=== PATIENT | female | born 1990 | race American Indian/Alaskan Native ===

== ENCOUNTER 2019-03-11 04:03 | Inpatient (IN) | payer BC, MEDICAID ==
[2019-03-11] MEDS ORDERED: ZOFRAN IV PRN ×3 (04:38→21:26)
[2019-03-11] MEDS ORDERED: SUBLIMAZE IV PRN (04:38)
[2019-03-11] MEDS ORDERED: STADOL IV PRN (04:38)
[2019-03-11] MEDS ORDERED: NARCAN 0.4 MG/1 ML IV PRN ×3 (04:38→21:26)
[2019-03-11] MEDS ORDERED: BRETHINE SUB-Q PRN (04:38)
[2019-03-11] MEDS ORDERED: BRETHINE IVP PRN (04:38)
[2019-03-11] MEDS ORDERED: XYLOCAINE 2% INFILTRATI ONE (04:38)
[2019-03-11] MEDS ORDERED: MINERAL OIL PO PRN (04:38)
[2019-03-11] MEDS ORDERED: AMPICILLIN/NS 2 GM/100 ML 2 GM/100 ML BAG IV ONE (04:38)
[2019-03-11] MEDS ORDERED: PITOCin/NS 20 UNIT/1000ML DRIP 20 UNITS/1,000 ML BAG IV SCH ×3 (05:00→21:26)
[2019-03-11 05:42] LABS: Hematocrit 39.4 % (30.3-42.9); Hemoglobin 13.4 gm/dl (10.1-14.3); Mean Corpuscular HGB Conc 34 % (30-34); Mean Corpuscular Volume 95 fl (79-97); Platelet Count 211 K/mm3 (140-440); Red Blood Count 4.17 M/mm3 (3.65-5.03); Red Cell Distribution Width 13.5 % (13.2-15.2)
[2019-03-11] MEDS: LACTATED RINGERS 1,000 ML IV SCH ×2 (07:53→14:59)
[2019-03-11] MEDS ORDERED: AMPICILLIN/NS 1 GM/50 ML 1 GM/50 ML BAG IV SCH ×3 (08:30→12:00)
[2019-03-11] MEDS ORDERED: CELESTONE SOLUSPAN IM ONE ×2 (08:30→09:00)
--- NOTE | 2019-03-11 08:57 | Ultrasound Report ---
OB ULTRASOUND History: for EFW, MCKENNA and presentation. Technique: Transabdominal ultrasound with Doppler interrogation. Gestation: Single Position: Cephalic Amniotic Fluid: Decreased MCKENNA = 5.2 cm Heart Rate: 160 BPM BPD: 8.7 cm = 35 w 2 d HC: 31.1 cm = 34 w 6 d AC: 28.3 cm = 32 w 2 d FL: 7.0 cm = 36 w 0 d HC/AC Ratio: 1.10 Cephalic Index: 88.6 Estimated Weight: 2313 grams Clinical age = 35 w 3 d EDC: 04/12/19 US Gest. Age = 34 w 4 d EDC: 04/18/19 IMPRESSION: Viable, single intrauterine as described.
[2019-03-11] MEDS ORDERED: PITOCin/NS 30 UNIT/500ML 30 UNITS/500 ML BAG IV SCH (09:00)
--- NOTE | 2019-03-11 09:55 | History and Physical Report ---
History of Present Illness Date of examination: 03/11/19 Date of admission: 03/11/19 04:54 Chief complaint: rupture of membranes History of present illness: Pt is a 28 year old -N[place]ian female ALBINA 04/12/19 at 35w3d presents with rupture of membranes at 0330 am. She reports irregular contractions and denies vaginal bleeding. She has had care at [facility] since 11 wks complicated by morbid obesity, gestational diabetes A1, genital herpes without lesion or prodrome, and large for gestational age (EFW 95%ile). She is GBS unknown. 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 Family/Genetic History: none Social history: - Obstetrical History Expected Date of Delivery: 04/12/19 Actual Gestation: 35 Week(s) 3 Day(s) : 6 Para: 2 Hx # Term Pregnancies: 2 Number of Pregnancies: 0 Spontaneous Abortions: 1 Induced : 2 Number of Living Children: 2 Medications and Allergies Allergies Allergy/AdvReac Type Severity Reaction Status Date / Time No Known Allergies Allergy Verified 10/28/18 08:20 Home Medications Medication Instructions Recorded Confirmed Last Taken Type Doxycycline [Vibramycin CAP] 100 mg PO BID #14 capsule 12/04/13 11/09/14 Unknown Rx Ibuprofen [Motrin] 800 mg PO TID PRN #30 tablet 12/04/13 11/09/14 Unknown Rx Acetaminophen/Codeine [Tylenol #3] 1 tab PO Q6H PRN #15 tab 07/14/14 11/09/14 Unknown Rx Ibuprofen [Motrin 600 MG tab] 600 mg PO Q6H #30 tablet 11/10/14 Unknown Rx Penicillin V Potassium 500 mg PO BID #20 tablet 09/27/18 Unknown Rx diphenhydrAMINE [Benadryl CAP] 25 mg PO Q6HR PRN #15 capsule 10/28/18 Unknown Rx Active Meds: Active Medications Butorphanol Tartrate (Stadol) 2 mg IV Q2H PRN PRN Reason: Pain , Severe (7-10) Ephedrine Sulfate (Ephedrine Sulfate) 10 mg IV Q2M PRN PRN Reason: Hypotension Fentanyl (Sublimaze) 100 mcg IV Q2H PRN PRN Reason: Labor Pain Lactated Ringer's (Lactated Ringers) 1,000 mls @ 125 mls/hr IV DIRECT BUBBA Last Admin: 03/11/19 07:53 Dose: 125 mls/hr Documented by: Oxytocin/Sodium Chloride (Pitocin/Ns 20 Unit/1000ml Drip) 20 units in 1,000 mls @ 125 mls/hr IV DIRECT BUBBA Oxytocin/Sodium Chloride (Pitocin/Ns 30 Unit/500ml) 30 units in 500 mls @ 2 mls/hr IV TITR BUBBA; Protocol Last Titration: 03/11/19 09:35 Dose: 10 ml/hr, 10 mls/hr Documented by: Ampicillin Sodium (Ampicillin/Ns 1 Gm/50 Ml) 1 gm in 50 mls @ 100 mls/hr IV Q4H BUBBA; Protocol Mineral Oil (Mineral Oil) 30 ml PO QHS PRN PRN Reason: Constipation Naloxone HCl (Narcan 0.4 Mg/1 Ml) 0.1 mg IV Q2MIN PRN PRN Reason: Res Rate </= 8 or 02 SAT < 92% Ondansetron HCl (Zofran) 4 mg IV Q8H PRN PRN Reason: Nausea And Vomiting Terbutaline Sulfate (Brethine) 0.25 mg SUB-Q ONCE PRN PRN Reason: Hyperstimulation/Hypertonicity Terbutaline Sulfate (Brethine) 0.25 mg IVP ONCE PRN PRN Reason: Hyperstimulation/Hypertonicity Review of Systems All systems: negative - Vital Signs Vital signs: Vital Signs Temp Pulse Resp BP 98.6 F 100 H 16 132/73 03/11/19 04:37 03/11/19 04:37 03/11/19 04:37 03/11/19 04:37 Temp Pulse Resp BP Pulse Ox 97.3 F L 85 20 129/67 03/11/19 08:00 03/11/19 09:41 03/11/19 08:00 03/11/19 09:41 - Physical Exam Breasts: Positive: deferred Cardiovascular: Regular rate Lungs: Positive: Clear to auscultation Abdomen: Positive: soft (obese, gravid ) Genitourinary (Female): Positive: normal external genitalia Uterus: Positive: enlarged (gravid ) Extremities: Positive: edema (trace) - Obstetrical FHR: category 1 Uterine Contraction Monitor Mode: External Cervical Dilatation: 3 Cervical Effacement Percentage: 60 station: -3 Uterine Contraction Pattern: Irregular Uterine Tone Measurement Phase: Resting Uterine Contraction Intensity: Mild Results Result Diagrams: 03/11/19 05:20 All other labs normal. Assessment and Plan A: IUP at 35w3d PPROM Morbid Obesity Genital Herpes without lesion or prodrome GBS unknown P: Admit to labor and delivery. GBS prophylaxis Pitocin induction NICU consult
--- NOTE | 2019-03-11 11:45 | Event Note ---
Date: 03/11/19 Pt somewhat uncomfortable with contractions. Category II tracing. Cervix 3.5/60/-3. Continue pitocin induction.
[2019-03-11] MEDS ORDERED: NARCAN 2 MG/2 ML IV PRN (15:19)
--- NOTE | 2019-03-11 15:26 | Anesthesia Consultation ---
Anesthesia Consult and Med Hx Date of service: 03/11/19 - Airway Anesthetic Teeth Evaluation: Good ROM Head & Neck: Adequate Mental/Hyoid Distance: Adequate Mallampati Class: Class II Intubation Access Assessment: Good - Pre-Operative Health Status ASA Pre-Surgery Classification: ASA3 Proposed Anesthetic Plan: Epidural, Spinal - Pulmonary Hx Asthma: No COPD: No Hx Pneumonia: No - Cardiovascular System Hx Hypertension: No - Central Nervous System Hx Seizures: No Hx Psychiatric Problems: No - Endocrine Hx Renal Disease: No Hx End Stage Renal Disease: No Hx Non-Insulin Dependent Diabetes: Yes (GDM) Hx Hypothyroidism: No Hx Hyperthyroidism: No - Hematic Hx Anemia: No Hx Sickle Cell Disease: No - Other Systems Hx Alcohol Use: No Hx Obesity: Yes (BMI-47)
[2019-03-11] MEDS ORDERED: fentaNYL-BUPIV 2 MCG/ML-0.125% 200 MCG/100 ML BAG EPIDURAL SCH (16:00)
[2019-03-11] MEDS ORDERED: NEO SYNEPHRINE ONE (16:34)
[2019-03-11] MEDS ORDERED: NACL 0.9% 1000 ML 1,000 ML VG SCH (17:00)
--- NOTE | 2019-03-11 17:03 | Event Note ---
Date: 03/11/19 Provider on-call called to bedside secondary to episode of altered mental status x 30 seconds after epidural. Pt noted to be markedly hypotensive. Category II tracing. Pt given ephedrine (documented by anesthesia). BP improved. Pitocin paused. Continue to monitor closely.
[2019-03-11] MEDS ORDERED: NACL 0.9% 500 ML 500 ML ONE (17:28)
[2019-03-11] MEDS ORDERED: REGLAN IV ONE (17:31)
[2019-03-11] MEDS ORDERED: BICITRA PO ONE (17:31)
[2019-03-11] MEDS ORDERED: PEPCID IV ONE (17:31)
[2019-03-11] MEDS ORDERED: ceFAZolin 3 GM in NACL 0.9% 100 ML IV NR (17:45)
--- NOTE | 2019-03-11 17:58 | Event Note ---
Date: 03/11/19 FHTs still with repetitive deep variable decelerations despite amnioinfusion. Plan to proceed with delivery.
[2019-03-11] MEDS ORDERED: LACTATED RINGERS 1,000 ML IV SCH (18:00)
[2019-03-11] MEDS ORDERED: ANCEF/STERILE WATER 2 GM/20 ML 2 GM/20 ML SYRINGE IV ONE (18:02)
[2019-03-11] MEDS ORDERED: XYLOCAINE MPF 2% ONE (18:05)
[2019-03-11] MEDS ORDERED: SUBLIMAZE ONE (18:06)
[2019-03-11] MEDS ORDERED: MARCAINE 0.5% INFILTRATI ONE (18:12)
[2019-03-11] MEDS ORDERED: NACL 0.9% IR ONE (18:31)
[2019-03-11] MEDS ORDERED: WATER FOR IRRIG STERILE IR ONE (18:31)
[2019-03-11] MEDS ORDERED: ANCEF ONE (19:15)
[2019-03-11] MEDS ORDERED: TORADOL ONE (19:15)
--- NOTE | 2019-03-11 19:18 | Procedure Note ---
OB Delivery Note - Delivery Date of Delivery: 03/11/19 Surgeon: YADY COATS Estimated blood loss: other (500 mL) - Section Preop diagnosis: nonreassuring FHR tracing Postop diagnosis: same section procedure: section, primary low transverse Disposition: PACU Complications: none Narrative: Please see operative report. - A at 1 minute: 8 at 5 minutes: 9 Gender: Male (2485g (5lb 8oz) @ 1844 pm)
--- NOTE | 2019-03-11 19:19 | Operative Report ---
Operative Report Operative Report: Date of procedure: March 11, 2019 Preoperative diagnosis: 1) IUP at 35w3d 2) PPROM 3) NRFHTs- repetitive variable decelerations 4) Morbid Obesity Postoperative diagnosis: Same Procedure: Primary low transverse section Surgeon: Maddy Goldstein M.D. Anesthesia: Epidural Findings: 1) Viable male , Apgars 8 and 9, weight 2485g, (5 lb 8 oz) in cephalic presentation. Nuchal cord x 1 2) Normal-appearing uterus ovaries and tubes Estimated blood loss: 500 mL IV fluids: 1700 mL Urine output: 300 mL Drains: Cruz to gravity Specimens: Placenta to pathology Complications: None. Counts correct x 3 Disposition: Stable to PACU Indication for procedure: Pt is a 28 year old at 35w3d who presents with PPROM and repetitive variable decelerations despite amnioinfusion remote from delivery. The decision was made to proceed with section. Operation in detail: After the risks, benefits, alternatives and complications were explained to the patient she gave informed consent for the procedure. She was subsequently taken to the operating room where epidural anesthesia was noted to be adequate. She was subsequently placed in the dorsal supine position with leftward tilt and prepped and draped in a normal sterile fashion. heart tones were noted to be in the 150s prior to incision. A timeout was performed. A Pfannenstiel skin incision was made with the knife and carried down to the layer of the fascia with the Bovie. The fascia was incised in the midline and the fascial incision was extended bilaterally with the Bovie. Attention was then turned to the superior aspect of the incision which was grasped with two Kochers, tented up, and dissected off the rectus muscles. Attention was then turned to the inferior aspect of the incision which was grasped with two Kochers, tented up and dissected off the rectus muscles. The rectus muscles were then in the midline. The peritoneum was then entered bluntly. The peritoneal incision was extended with good visualization of the bladder. The peritoneal incision was then stretched. An Mikhail self-retaining retractor was placed for visualization. The bladder blade was placed. The vesicouterine peritoneum was grasped with smooth pickups and incised with Metzenbaum scissors. Metzenbaum scissors were used to extend the incision bilaterally. The bladder flap was then created digitally and the bladder blade was replaced. A transverse incision was made in the lower uterine segment with a knife and extended bilaterally with the bandage scissors. The head was delivered without difficulty followed by shoulders and body. was bulb suctioned at delivery. The cord was clamped and cut and the was handed to NICU staff in attendance. Cord blood was collected. The placenta was then delivered manually. The uterus was then cleared of all clots and debris. The hysterotomy was then reapproximated with 0 Vicryl in a running locked fashion. A second layer of the same suture was used in imbricating fashion. The hysterotomy was inspected and hemostasis was noted. The Mikhail self-retaining retractor was removed. The gutters were irrigated and cleared of all clots and debris. The hysterotomy was again inspected and noted to be hemostatic. Surgicel was placed over the hy sterotomy. The peritoneum was reapproximated with 2-0 Vicryl in a running fashion incorporating the rectus muscles. The fascia was reapproximated with 0 Vicryl in a running fashion. The subcutaneous tissue was reapproximated with 3- 0 Vicryl in a running fashion. The skin was reapproximated with 4-0 Vicryl in a subcuticular fashion. The incision was then covered with steri strips and a pressure dressing. The procedure was then ended. The patient tolerated the procedure well and was taken to the PACU in stable condition. All instrument, lap, and needle counts were correct 3.
[2019-03-11] MEDS ORDERED: BENADRYL IV PRN (19:51)
[2019-03-11] MEDS ORDERED: PHENERGAN PR PRN (19:51)
[2019-03-11] MEDS ORDERED: PHENERGAN PO PRN (19:51)
--- NOTE | 2019-03-11 19:51 | Post Anesthesia Evaluation ---
- Post Anesthesia Evaluation Patient Participated: Yes Airway Patent: Yes Stable Respiratory Function: Yes Nausea/Vomiting: No Temp > 96.8F: Yes Pain Manageable: Yes Adequeate Hydration: Yes Anesthesia Complications: No Block Receding Appropriately: Yes Patient on Ventilator: Yes
[2019-03-11] MEDS ORDERED: SODIUM CHLORIDE FLUSH SYRINGE 10 ML IV SCH (20:00)
[2019-03-11] MEDS ORDERED: LANSINOH TP PRN (21:26)
[2019-03-11] MEDS ORDERED: D5LR 1,000 ML IV SCH (21:26)
[2019-03-11] MEDS ORDERED: TUCKS PAD TP PRN (21:26)
[2019-03-11] MEDS ORDERED: SODIUM CHLORIDE FLUSH SYRINGE 10 ML IV NR (21:26)
[2019-03-11] MEDS: DILAUDID IV PRN (22:15)
[2019-03-11] MEDS: ANCEF/NS 1 GM/50 ML 1 GM/50 ML BAG IV SCH (22:18)
[2019-03-12] MEDS: DILAUDID IV PRN (02:12)
[2019-03-12] MEDS: PERCOCET 5/325 PO PRN ×4 (06:17→20:08)
[2019-03-12] MEDS: IBUPROFEN PO PRN ×2 (06:18→18:27)
[2019-03-12] MEDS: ANCEF/NS 1 GM/50 ML 1 GM/50 ML BAG IV SCH (06:22)
[2019-03-12 07:44] LABS: Hematocrit 35.8 % (30.3-42.9); Hemoglobin 12.2 gm/dl (10.1-14.3)
[2019-03-12] MEDS: FEOSOL PO SCH (09:50)
[2019-03-12] MEDS ORDERED: DEEP SEA NS PRN (16:10)
[2019-03-12] MEDS: MYLICON PO PRN (18:33)
[2019-03-12] MEDS ORDERED: BOOSTRIX IM ONE (19:23)
[2019-03-12] MEDS ORDERED: M-M-R II VACCINE SUB-Q ONE (19:23)
[2019-03-12] MEDS: MILK OF MAGNESIA PO SCH (21:31)
[2019-03-13] MEDS: PERCOCET 5/325 PO PRN ×5 (00:01→22:26)
[2019-03-13] MEDS: IBUPROFEN PO PRN ×4 (00:02→22:26)
--- NOTE | 2019-03-13 00:17 | Progress Note ---
Assessment and Plan A: PPD#1 s/p primary at 35 wks secondary to PPROM and NRFHTs Morbid Obesity Nasal congestion P: Routine postop care Saline nasal spray Subjective - Subjective Date of service: 03/13/19 Principal diagnosis: s/p section Interval history: Late entry. Pt evaluated around 8 am on 03/12/18. Reports nasal congestion but otherwise no complaints. Patient reports: appetite normal, flatus, no voiding normally (subramanian in place), no bowel movement, no ambulating normally (SCDs in place ) [place]: in NICU Objective - Vital Signs Latest vital signs: Vital Signs Temp Pulse Resp BP BP Pulse Ox 03/12/19 18:26 97.5 F L 89 24 126/71 100 03/12/19 16:17 16 03/12/19 08:22 98.6 F 78 18 121/75 03/12/19 04:38 78 112/69 98 03/12/19 04:30 98.9 F 76 20 112/69 03/12/19 02:12 20 Intake and Output 03/12/19 03/12/19 03/13/19 14:59 22:59 06:59 Intake Total 1160 600 Output Total 1300 Balance 1160 -700 Intake: Oral 1160 600 Output: Urine 1300 Indwelling Catheter 1300 Other: Total, Intake Amount 680 600 Total, Output Amount 700 # Voids Indwelling Catheter 1 1 - Exam Breasts: Present: deferred Cardiovascular: Present: Regular rate Lungs: Present: Clear to auscultation Abdomen: Present: soft (obese ) Uterus: Present: fundal height below umbilicus Extremities: Present: normal Incision: Present: dressed
[2019-03-13] MEDS: MILK OF MAGNESIA PO SCH ×4 (02:06→20:44)
[2019-03-13] MEDS: FEOSOL PO SCH (09:28)
--- NOTE | 2019-03-13 12:32 | Progress Note ---
Assessment and Plan A/P POD 2 s/p primary csec doing well VSS consider d/c home tomorrow Subjective - Subjective Date of service: 03/13/19 Principal diagnosis: s/p section Patient reports: appetite normal, voiding normally, pain well controlled, flatus, ambulating normally : doing well Objective - Vital Signs Latest vital signs: Vital Signs Temp Pulse Resp BP BP Pulse Ox 03/13/19 08:17 97.6 F 86 16 115/81 99 03/12/19 18:26 97.5 F L 89 24 126/71 100 03/12/19 16:17 16 Intake and Output 03/12/19 03/13/19 03/13/19 23:59 07:59 15:59 Intake Total 840 Output Total 1300 Balance -460 Intake: Oral 840 Output: Urine 1300 Indwelling Catheter 1300 Other: Total, Intake Amount 240 Total, Output Amount 700 # Voids Indwelling Catheter 1 1 - Exam Breasts: Present: normal Cardiovascular: Present: Regular rate, Normal S1 Lungs: Present: Clear to auscultation, Normal air movement Abdomen: Present: normal appearance, soft, normal bowel sounds. Absent: distention, tenderness, guarding Vulva: both: normal Uterus: Present: normal, firm, fundal height below umbilicus. Absent: bogginess, tenderness Extremities: Present: normal Deep Tendon Reflex Grade: Normal +2 Incision: Present: normal, dry, intact
[2019-03-13] MEDS: MYLICON PO PRN (17:52)
[2019-03-14] MEDS: IBUPROFEN PO PRN ×2 (04:06→10:47)
[2019-03-14] MEDS: MILK OF MAGNESIA PO SCH ×2 (04:06→08:49)
[2019-03-14] MEDS: PERCOCET 5/325 PO PRN ×2 (04:06→10:45)
[2019-03-14] MEDS: MYLICON PO PRN (08:47)
[2019-03-14] MEDS: FEOSOL PO SCH (08:49)
[2019-03-14 08:57] VITALS: BP 137/76
--- NOTE | 2019-03-14 10:20 | Progress Note ---
Assessment and Plan - Patient Problems (1) delivery delivered Current Visit: Yes Status: Acute Plan to address problem: patient doing well routine postop care Subjective - Subjective Date of service: 03/14/19 Principal diagnosis: s/p section Interval history: Patient is tolerating regular diet. Pain is better controlled. Voiding without difficulty Patient reports: appetite normal, voiding normally, pain well controlled : doing well Objective - Vital Signs Latest vital signs: Vital Signs Temp Pulse Resp BP BP Pulse Ox 03/14/19 08:16 97.4 F L 82 18 137/76 98 03/14/19 00:12 98.7 F 70 18 107/55 99 03/13/19 15:52 97.4 F L 87 16 149/73 99 Intake and Output 03/13/19 03/14/19 03/14/19 22:59 06:59 14:59 Intake Total 200 Balance 200 Intake: Oral 200 Other: Total, Intake Amount 200 - Exam Abdomen: Present: soft Uterus: Present: normal
--- NOTE | 2019-03-14 10:22 | Discharge Summary ---
Providers - Providers Date of Admission: 03/11/19 04:54 Date of discharge: 03/14/19 Attending physician: ELISABETH TURNER MD Primary care physician: ELISABETH TURNER MD Hospitalization Reason for admission: rupture of membranes Delivery: Procedure: section, primary low transverse Discharge diagnosis: delivery baby: male Hospital course: Patient presented with PPROM. Intrapartum complicated by NRFHT. Primary performed Condition at discharge: Good Disposition: DC-01 TO HOME OR SELFCARE - Discharge Diagnoses (1) delivery delivered Status: Acute Plan - Discharge Medications Prescriptions: Ibuprofen [Motrin] 800 mg PO Q8HR PRN #30 tablet PRN Reason: Pain, Moderate (4-6) oxyCODONE /ACETAMINOPHEN [Percocet 5/325] 1 tab PO Q6HR PRN #40 tablet PRN Reason: Pain - Provider Discharge Summary Activity: no sex for 6 weeks, no heavy lifting 4 weeks, no strenuous exercise Diet: routine Instructions: routine Additional instructions: [] Smoking cessation referral if applicable(refer to patient education folder for contact #) [] Refer to [facility] Booklet Call your doctor immediately for: * Fever > 100.5 * Heavy vaginal bleeding ( >1 pad per hour) * Severe persistent headache * Shortness of breath * Reddened, hot, painful area to leg or breast * Drainage or odor from incision. * Keep incision clean and dry at all times and follow doctor's instructions regarding bathing/showering schedule for visit in 2 weeks - Follow up plan
== END 2019-03-14 18:43 | disposition home or self-care (01) | DRG 787 ==
LOC: TRG 04:03 → LD 04:20 → TRG 04:54 → LD 04:54 → OB 21:22
PROVIDERS: ADMIT Obstetrics & Gynecology; ATTEND Obstetrics & Gynecology
PROC: 10D00Z1 Extraction of Products of Conception, Low, Open Approach (ICD-10-PCS; principal; 2019-03-11)
PROC: 3E0234Z Introduction of Serum, Toxoid and Vaccine into Muscle, Percutaneous Approach (ICD-10-PCS; 2019-03-12)
DX: O76 Abnormality in fetal heart rate and rhythm complicating labor and delivery (principal); O98.52 Other viral diseases complicating childbirth; O42.913 Preterm premature rupture of membranes, unspecified as to length of time between rupture and onset of labor, third trimester; E66.01 Morbid (severe) obesity due to excess calories; Z71.3 Dietary counseling and surveillance; Z3A.35 35 weeks gestation of pregnancy; Z37.0 Single live birth; Z23 Encounter for immunization; O99.214 Obesity complicating childbirth; O26.53 Maternal hypotension syndrome, third trimester; B00.9 Herpesviral infection, unspecified
CPT/HCPCS: 36415; 76816; 82962; 85014; 85018; 85027; 86592; 86850; 86900; 86901; 88307; G0378; J0290; J0690; J0702; J1170; J1885; J2370; J2590; J2765; J3010; J7040; J7120; J7121

== ENCOUNTER 2019-03-25 16:53 | Observation (INO) | payer BC, MEDICAID ==
[2019-03-25] MEDS ORDERED: MAGNESIUM SULFATE 4GM/100ML 4 GM/100 ML BAG IV ONE ×2 (17:13→21:00)
[2019-03-25] MEDS ORDERED: APRESOLINE IV PRN (17:13)
[2019-03-25 19:33] LABS: Hematocrit 42.6 % (30.3-42.9); Mean Corpuscular HGB Conc 33 % (30-34); Mean Corpuscular Volume 97 fl (79-97); Platelet Count 283 K/mm3 (140-440); Red Blood Count 4.41 M/mm3 (3.65-5.03); Red Cell Distribution Width 13.3 % (13.2-15.2)
[2019-03-25 20:03] LABS: Alanine Aminotransferase 10 units/L (7-56); Uric Acid 6.6 mg/dL (3.5-7.6)
[2019-03-25] MEDS: LACTATED RINGERS 1,000 ML IV SCH (20:23)
[2019-03-25] MEDS: MAGNESIUM SULFATE 40GM/1000ML 40 GM/1,000 ML BAG IV SCH (21:04)
[2019-03-25] MEDS ORDERED: TYLENOL PO PRN (21:57)
[2019-03-25] MEDS ORDERED: IBUPROFEN PO PRN (21:57)
[2019-03-25 23:14] LABS: Bilirubin,Urine NEG (Negative); Blood,Urine NEG (Negative); Color,Urine Straw (Yellow); Mucus,Urine FEW /HPF; Protein,Urine <15 mg/dL mg/dL (Negative); Urobilinogen,Urine < 2.0 mg/dL (<2.0); WBC,Urine < 1.0 /HPF (0.0-6.0)
--- NOTE | 2019-03-26 08:34 | History and Physical Report ---
History of Present Illness Date of examination: 03/26/19 Date of admission: 03/25/19 17:28 Chief complaint: Sent from the office with elevated blood pressure and headache History of present illness: Patient is a 28-year-old -Macanese female 6 para 2133 status post primary section on 03/11/2019 who presented to the office on 03/25/2019 with blood pressures 130s to 150s over 90s to 100s and complaint of headache for 5 days. The patient was subsequently admitted for preeclampsia for IV magnesium sulfate administration. 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 Family/Genetic History: none Social history: - Obstetrical History : 6 Para: 3 Hx # Term Pregnancies: 2 Number of Pregnancies: 1 Spontaneous Abortions: 1 Induced : 2 Number of Living Children: 3 Medications and Allergies Allergies Allergy/AdvReac Type Severity Reaction Status Date / Time No Known Allergies Allergy Verified 10/28/18 08:20 Home Medications Medication Instructions Recorded Confirmed Last Taken Type Doxycycline [Vibramycin CAP] 100 mg PO BID #14 capsule 12/04/13 11/09/14 Unknown Rx Ibuprofen [Motrin] 800 mg PO TID PRN #30 tablet 12/04/13 11/09/14 Unknown Rx Acetaminophen/Codeine [Tylenol #3] 1 tab PO Q6H PRN #15 tab 07/14/14 11/09/14 Unknown Rx Ibuprofen [Motrin 600 MG tab] 600 mg PO Q6H #30 tablet 11/10/14 Unknown Rx Penicillin V Potassium 500 mg PO BID #20 tablet 09/27/18 Unknown Rx diphenhydrAMINE [Benadryl CAP] 25 mg PO Q6HR PRN #15 capsule 10/28/18 Unknown Rx Ibuprofen [Motrin] 800 mg PO Q8HR PRN #30 tablet 03/12/19 Unknown Rx oxyCODONE /ACETAMINOPHEN [Percocet 1 tab PO Q6HR PRN #40 tablet 03/12/19 Unknown Rx 5/325] Active Meds: Active Medications Acetaminophen (Tylenol) 650 mg PO Q4H PRN PRN Reason: Pain, Mild (1-3) Hydralazine HCl (Apresoline) 5 mg IV Q30MIN PRN PRN Reason: HTN SYSBP>170/&OR ANGELO>110 Lactated Ringer's (Lactated Ringers) 1,000 mls @ 125 mls/hr IV DIRECT BUBBA Last Admin: 03/25/19 20:23 Dose: 125 mls/hr Documented by: Magnesium Sulfate (Magnesium Sulfate 40gm/1000ml) 40 gm in 1,000 mls @ 50 mls/hr IV DIRECT BUBBA Last Admin: 03/25/19 21:04 Dose: 2 gm/hr, 50 mls/hr Documented by: Ibuprofen (Motrin) 800 mg PO Q8H PRN PRN Reason: Pain, Mild (1-3) Last Admin: 03/25/19 22:26 Dose: 800 mg Documented by: Review of Systems All systems: negative - Vital Signs Vital signs: Vital Signs Temp Resp 98.3 F 18 03/25/19 18:24 03/25/19 18:24 Temp Pulse Resp BP Pulse Ox 98.9 F 89 16 128/83 99 03/26/19 08:10 03/26/19 08:30 03/26/19 08:10 03/26/19 08:03 03/26/19 08:30 - Physical Exam Breasts: Positive: deferred Cardiovascular: Regular rate Lungs: Positive: Clear to auscultation Abdomen: Positive: soft (obese ), other (incision healing well ) Extremities: Positive: edema (trace) Results Result Diagrams: 03/25/19 19:02 03/25/19 19:02 Abnormal lab results 03/25/19 03/26/19 Range/Units 19:02 01:36 Magnesium 4.60 H (1.7-2.3) mg/dL Lactate Dehydrogenase 308 H (91-180) units/L All other labs normal. Assessment and Plan A: preevclampsia on IV magnesium sulfate s/p primary section on 03/11/19 Morbid obesity P: Continue IV Magensium for 24 hrs then monitor BP curve Consider discharge this evening vs tomorrow
[2019-03-26] MEDS: FIORICET PO PRN ×2 (09:59→17:44)
[2019-03-26] MEDS ORDERED: CLARITIN PO SCH (10:00)
[2019-03-26] MEDS ORDERED: DEEP SEA NS SCH (10:00)
[2019-03-26] MEDS: LACTATED RINGERS 1,000 ML IV SCH (10:03)
[2019-03-26] MEDS: MAGNESIUM SULFATE 40GM/1000ML 40 GM/1,000 ML BAG IV SCH (17:27)
[2019-03-26 21:03] VITALS: BP 145/87
--- NOTE | 2019-03-26 21:10 | Event Note ---
Date: 03/26/19 Contacted by pt's nurse secondary to patient wanting to be discharged tonight. BPs remain below severe range and headache has resolved. Plan to discharge home with follow up next week in the office.
--- NOTE | 2019-03-26 21:15 | Discharge Summary ---
Providers - Providers Date of Admission: 03/25/19 17:28 Date of discharge: 03/26/19 Attending physician: YADY COATS Primary care physician: ELISABETH TURNER MD Hospitalization Reason for admission: other ( preeclampsia ) Discharge diagnosis: other ( Preeclampsia ) Hospital course: Pt was admitted to the hospital with preeclampsia. She received IV Magnesium sulfate for 24 hrs as well as serial blood pressure measurements. Her blood pressures did not exceed the severe range threshold without antihypertensives. She requested discharge shortly after discontinuation of the magnesium. She will follow up next week for a blood pressure check. Condition at discharge: Stable Disposition: DC-01 TO HOME OR SELFCARE Plan - Discharge Medications Prescriptions: Loratadine [Claritin] 10 mg PO DAILY #30 tablet Butalb/Acetaminophen/Caffeine [Fioricet 50-300-40 mg CAP] 1 cap PO Q6HR PRN #30 cap PRN Reason: Headache Azithromycin [Zithromax TAB] 500 mg PO QDAY #5 tablet - Provider Discharge Summary Activity: routine Diet: routine Instructions: routine Additional instructions: [] Smoking cessation referral if applicable(refer to patient education folder for contact #) [] Refer to [facility] Booklet Call your doctor immediately for: * Fever > 100.5 * Heavy vaginal bleeding ( >1 pad per hour) * Severe persistent headache * Shortness of breath * Reddened, hot, painful area to leg or breast * Drainage or odor from incision. * Keep incision clean and dry at all times and follow doctor's instructions regarding bathing/showering - Follow up plan Follow up: YADY COATS MD [Staff Physician] - 7 Days Forms: [facility] Discharge Summary
== END 2019-03-26 21:25 | disposition home or self-care (01) ==
LOC: 3A 16:53 → UNDOADMIN 16:53 → LD 17:28
PROVIDERS: ADMIT Obstetrics & Gynecology; ATTEND Obstetrics & Gynecology
DX: O14.95 Unspecified pre-eclampsia, complicating the puerperium (principal); O99.215 Obesity complicating the puerperium; E66.01 Morbid (severe) obesity due to excess calories
CPT/HCPCS: 36415; 81001; 82565; 83615; 83735; 84450; 84460; 84550; 85027; 96365; 96366; G0378; G0379; J3475; J7120

== ENCOUNTER 2020-03-09 15:47 | Outpatient (CLI) | payer BC, MEDICAID ==
[2020-03-09 16:36] LABS: Basophils % (Auto) 0.3 % (0.0-1.8); Eosinophils # (Auto) 0.1 K/mm3 (0.0-0.4); Eosinophils % (Auto) 1.2 % (0.0-4.3); Hematocrit 44.2 % (30.3-42.9); Hemoglobin 15.6 gm/dl (10.1-14.3); Lymphocytes # (Auto) 2.8 K/mm3 (1.2-5.4); Lymphocytes % (Auto) 32.3 % (13.4-35.0); Mean Corpuscular HGB Conc 35 % (30-34); Mean Corpuscular Volume 96 fl (79-97); Monocytes # (Auto) 0.9 K/mm3 (0.0-0.8); Monocytes % (Auto) 10.4 % (0.0-7.3); Platelet Count 330 K/mm3 (140-440); Red Blood Count 4.59 M/mm3 (3.65-5.03); Red Cell Distribution Width 12.8 % (13.2-15.2)
--- NOTE | 2020-03-09 18:06 | Ultrasound Report ---
US pelvic complete, US transvaginal INDICATION / CLINICAL INFORMATION: IRREGULAR MENSES. COMPARISON: None available. FINDINGS: Transabdominal and transvaginal imaging was performed. Uterus measures 6.7 x 4.7 x 5.8 cm. Endometrial echo complex measures 6 mm. Myometrium is heterogeneo us without focal lesion. Ovaries are symmetric and normal in size. Flow is seen to both ovaries. There is a 1.5 cm hypoechoic right ovarian lesion. No flow is seen within this. No free fluid or adnexal lesions. IMPRESSION: 1. 1.5 cm hypoechoic right ovarian lesion is avascular, this could be a hemorrhagic cyst but is nonsp ecific. 2. Myometrium is mildly heterogeneous without focal lesion. Endometrial echo complex is within normal limits. No endometrial fluid is seen. Signer Name: Anurag Mims MD Signed: 03/09/2020 6:02 PM Workstation Name: [id number]
== END 2020-03-09 15:48 | disposition home or self-care (01) ==
LOC: LAB 15:47
PROVIDERS: ATTEND Obstetrics & Gynecology
DX: N83.9 Noninflammatory disorder of ovary, fallopian tube and broad ligament, unspecified (principal); N92.6 Irregular menstruation, unspecified
CPT/HCPCS: 36415; 76830; 76856; 83001; 83036; 84146; 84443; 84702; 85025

== ENCOUNTER 2020-04-16 17:53 | Emergency (ER) | payer BC, MEDICAID ==
[2020-04-16 18:02] VITALS: BP 145/86
--- NOTE | 2020-04-16 19:08 | Emergency Department Report ---
ED General Adult HPI - General Chief complaint: Dyspnea/Respdistress Stated complaint: SOB/COUGH Time Seen by Provider: 04/16/20 18:19 Source: patient Mode of arrival: Ambulatory Limitations: No Limitations - History of Present Illness Initial comments: 29-year-old -[place] female resents emergency department complaining of a few week history of nasal congestion associated with cough that has not yet begun to respond to the singular provided by her primary care provider couple days ago. States that she has been having some issues with dyspnea and tightness in her chest and symptoms appear to worsen with ambulation and has been worsening over the last couple days. Wearing a facemask seems to make her symptoms worse but she denies any smoking history or history of asthma. No history of pulmonary embolisms and reports no fever, chills, sweats no hemoptysis no hematemesis no hematochezia no palpitations. -: Gradual, days(s) (5) Radiation: non-radiation Consistency: constant Improves with: none Worsens with: none Associated Symptoms: denies other symptoms Treatments Prior to Arrival: none - Related Data Previous Rx's Medication Instructions Recorded Last Taken Type DOXYCYCLINE Hyclate [Vibramycin 100 mg PO BID #14 capsule 12/04/13 Unknown Rx CAP] Ibuprofen [Motrin] 800 mg PO TID PRN #30 tablet 12/04/13 Unknown Rx Acetaminophen/Codeine [Tylenol #3] 1 tab PO Q6H PRN #15 tab 07/14/14 Unknown Rx Ibuprofen [Motrin 600 MG tab] 600 mg PO Q6H #30 tablet 11/10/14 Unknown Rx Penicillin V Potassium 500 mg PO BID #20 tablet 09/27/18 Unknown Rx diphenhydrAMINE [Benadryl CAP] 25 mg PO Q6HR PRN #15 capsule 10/28/18 Unknown Rx Ibuprofen [Motrin] 800 mg PO Q8HR PRN #30 tablet 03/12/19 Unknown Rx oxyCODONE /ACETAMINOPHEN [Percocet 1 tab PO Q6HR PRN #40 tablet 03/12/19 Unknown Rx 5/325] Azithromycin [Zithromax TAB] 500 mg PO QDAY #5 tablet 03/26/19 Unknown Rx Butalb/Acetaminophen/Caffeine 1 cap PO Q6HR PRN #30 cap 03/26/19 Unknown Rx [Fioricet 50-300-40 mg CAP] Loratadine (Nf) [Claritin] 10 mg PO DAILY #30 tablet 03/26/19 Unknown Rx Desloratadine [Clarinex] 5 mg PO DAILY #7 tablet 04/16/20 Unknown Rx Olopatadine HCl [Patanase] 30.5 gm NS DAILY #1 spray.pump 04/16/20 Unknown Rx predniSONE [Deltasone] 50 mg PO QDAY #5 tab 04/16/20 Unknown Rx Allergies Allergy/AdvReac Type Severity Reaction Status Date / Time No Known Allergies Allergy Verified 10/28/18 08:20 ED Review of Systems ROS: Stated complaint: SOB/COUGH Other details as noted in HPI Comment: All other systems reviewed and negative ED Past Medical Hx - Past Medical History Previous Medical History?: Yes Hx Hypertension: Yes Hx Congestive Heart Failure: No Hx Diabetes: No Hx Deep Vein Thrombosis: No Hx Renal Disease: No Hx Sickle Cell Disease: No Hx Seizures: No Hx Asthma: No Hx COPD: No Hx HIV: No Additional medical history: right leg injuy, hardwarde place, left leg with same c/o - Surgical History Additional Surgical History: surgery to right hip and foot, X1 2019 - Social History Smoking Status: Unknown if ever smoked Substance Use Type: Alcohol - Medications Home Medications: Home Medications Medication Instructions Recorded Confirmed Last Taken Type DOXYCYCLINE Hyclate [Vibramycin 100 mg PO BID #14 capsule 12/04/13 11/09/14 Unknown Rx CAP] Ibuprofen [Motrin] 800 mg PO TID PRN #30 tablet 12/04/13 11/09/14 Unknown Rx Acetaminophen/Codeine [Tylenol #3] 1 tab PO Q6H PRN #15 tab 07/14/14 11/09/14 Unknown Rx Ibuprofen [Motrin 600 MG tab] 600 mg PO Q6H #30 tablet 11/10/14 Unknown Rx Penicillin V Potassium 500 mg PO BID #20 tablet 09/27/18 Unknown Rx diphenhydrAMINE [Benadryl CAP] 25 mg PO Q6HR PRN #15 capsule 10/28/18 Unknown Rx Ibuprofen [Motrin] 800 mg PO Q8HR PRN #30 tablet 03/12/19 Unknown Rx oxyCODONE /ACETAMINOPHEN [Percocet 1 tab PO Q6HR PRN #40 tablet 03/12/19 Unknown Rx 5/325] Azithromycin [Zithromax TAB] 500 mg PO QDAY #5 tablet 03/26/19 Unknown Rx Butalb/Acetaminophen/Caffeine 1 cap PO Q6HR PRN #30 cap 03/26/19 Unknown Rx [Fioricet 50-300-40 mg CAP] Loratadine (Nf) [Claritin] 10 mg PO DAILY #30 tablet 03/26/19 Unknown Rx Desloratadine [Clarinex] 5 mg PO DAILY #7 tablet 04/16/20 Unknown Rx Olopatadine HCl [Patanase] 30.5 gm NS DAILY #1 spray.pump 04/16/20 Unknown Rx predniSONE [Deltasone] 50 mg PO QDAY #5 tab 04/16/20 Unknown Rx ED Physical Exam - General Limitations: No Limitations General appearance: alert, in no apparent distress - Head Head exam: Present: atraumatic, normocephalic - Eye Eye exam: Present: normal appearance, PERRL, EOMI Pupils: Present: normal accommodation - ENT ENT exam: Present: normal exam, normal orophraynx, mucous membranes moist, TM's normal bilaterally, other (Nasal congestion) - Neck Neck exam: Present: normal inspection, full ROM - Respiratory Respiratory exam: Present: normal lung sounds bilaterally. Absent: respiratory distress, wheezes, rales, chest wall tenderness, accessory muscle use - Cardiovascular Cardiovascular Exam: Present: normal rhythm, tachycardia. Absent: systolic murmur, diastolic murmur, rubs, gallop - GI/Abdominal GI/Abdominal exam: Present: soft, normal bowel sounds. Absent: distended, tenderness, guarding, hyperactive bowel sounds, hypoactive bowel sounds, organomegaly, mass - Extremities Exam Extremities exam: Present: normal inspection, normal capillary refill - Back Exam Back exam: Present: normal inspection. Absent: CVA tenderness (R), CVA tender ness (L) - Neurological Exam Neurological exam: Present: alert, oriented X3, CN II-XII intact, normal gait - Psychiatric Psychiatric exam: Present: normal affect, normal mood - Skin Skin exam: Present: warm, dry, intact, normal color. Absent: rash ED Course Vital Signs 04/16/20 04/16/20 17:55 18:24 Temperature 98 F Pulse Rate 89 Respiratory 22 Rate Blood Pressure 145/86 O2 Sat by Pulse 98 98 Oximetry ED Medical Decision Making - Medical Decision Making This patient presents with acute cough, most consistent with bronchitis. Differential diagnosis includes pneumonia, asthma, hyperreactive airways. Presentation not consistent with acute bacterial pneumonia, influenza, asthma, transient airway hyperresponsiveness. Presentation not consistent with chronic causes of cough (including GERD, asthma, postnasal discharge, medication side effect, CHF, lung cancer or mass). Plan: No chest x-ray CXR, supportive care, reassess Discussed with Ms. Teresa the myriad of issues occurred be associated with her with her symptoms she assured me she she was only suspicious of the seasonal allergies and wanted treatment for such treatment was rendered advised her to to follow-up in 24 to 48 hours and return to the ER should her condition continues or worsens. We discussed the possibility of pneumonia versus DVT versus pulmonary effusion among other things she was alert and oriented x3 of sound mind and and judgment and opted to forego further testing Critical care attestation.: If time is entered above; I have spent that time in minutes in the direct care of this critically ill patient, excluding procedure time. ED Disposition Clinical Impression: Dyspnea, Acute bronchitis Disposition: DC-01 TO HOME OR SELFCARE Is pt being admited?: No Does the pt Need Aspirin: No Condition: Stable Instructions: Acute Bronchitis (ED), Dyspnea (ED) Prescriptions: Desloratadine [Clarinex] 5 mg PO DAILY #7 tablet predniSONE [Deltasone] 50 mg PO QDAY #5 tab Olopatadine HCl [Patanase] 30.5 gm NS DAILY #1 spray.pump Referrals: TELMA WALTERS MD [Primary Care Provider] - 3-5 Days
== END 2020-04-16 19:07 | disposition home or self-care (01) ==
LOC: ED 17:53
DX: J20.8 Acute bronchitis due to other specified organisms (principal); I10 Essential (primary) hypertension; Z98.890 Other specified postprocedural states; Z79.899 Other long term (current) drug therapy
CPT/HCPCS: 99282

== ENCOUNTER 2020-05-28 08:27 | Emergency (ER) | payer BC, MEDICAID ==
[2020-05-28 09:09] LABS: Basophils % (Auto) 0.4 % (0.0-1.8); Eosinophils # (Auto) 0.1 K/mm3 (0.0-0.4); Hematocrit 41.4 % (30.3-42.9); Hemoglobin 14.5 gm/dl (10.1-14.3); Lymphocytes # (Auto) 2.5 K/mm3 (1.2-5.4); Lymphocytes % (Auto) 33.8 % (13.4-35.0); Mean Corpuscular HGB Conc 35 % (30-34); Mean Corpuscular Volume 97 fl (79-97); Monocytes # (Auto) 0.6 K/mm3 (0.0-0.8); Platelet Count 268 K/mm3 (140-440); Red Blood Count 4.28 M/mm3 (3.65-5.03); Red Cell Distribution Width 13.4 % (13.2-15.2)
[2020-05-28 09:20] LABS: INR 0.97 (0.87-1.13)
[2020-05-28 09:21] LABS: Partial Thromboplastin Time 23.6 Sec. (24.2-36.6)
[2020-05-28 09:26] LABS: Creatine Kinase MB < 1.0 ng/mL (0.0-4.0)
[2020-05-28 09:30] LABS: BUN/Creatinine Ratio 13; Blood Urea Nitrogen 10 mg/dL (7-17); Calcium 9.4 mg/dL (8.4-10.2); Hemolysis Index 89
[2020-05-28 09:31] LABS: Alanine Aminotransferase 27 units/L (7-56); Albumin 4.2 g/dL (3.9-5)
[2020-05-28 09:38] LABS: Bilirubin,Direct < 0.2 mg/dL (0-0.2)
--- NOTE | 2020-05-28 09:45 | XRay Report ---
CHEST 1 VIEW INDICATION / CLINICAL INFORMATION: hypertension. COMPARISON: None available. FINDINGS: SUPPORT DEVICES: None. HEART / MEDIASTINUM: No significant abnormality. LUNGS / PLEURA: No significant pulmonary or pleural abnormality. No pneumothorax. ADDITIONAL FINDINGS: No significant additional findings. IMPRESSION: 1. No acute findings. Signer Name: Mio Irwin MD Signed: 05/28/2020 9:41 AM Workstation Name: [id number]
[2020-05-28] MEDS ORDERED: SODIUM CHLORIDE 0.9% 1000 ML 1,000 ML IV ONE (09:49)
[2020-05-28 09:55] LABS: Free T4 (Free Thyroxine) 1.2 ng/dL (0.76-1.46)
[2020-05-28 10:46] LABS: Bacteria,Urine 1+ /HPF (Negative); Bilirubin,Urine NEG (Negative); Blood,Urine LG (Negative); Color,Urine Yellow (Yellow); Mucus,Urine FEW /HPF; Protein,Urine <15 mg/dL mg/dL (Negative); Urobilinogen,Urine < 2.0 mg/dL (<2.0)
--- NOTE | 2020-05-28 11:02 | Emergency Department Report ---
ED General Adult HPI - General Chief complaint: Dizziness Stated complaint: LIGHT HEADED Time Seen by Provider: 05/28/20 08:40 Source: patient Mode of arrival: Ambulatory Limitations: No Limitations - History of Present Illness Initial comments: This is a 29-year-old female that felt light headed while at work today. She states that she experienced this once before when she had an epidural and her blood pressure was low. However at the time of her symptoms her blood pressure was 150/100 approximately. I did see her when she was symptomatic and she did look a bit pale. Therefore, we placed her on a gurney and proceeded to do a medical work-up. Patient states that she has a history of hypertension. She is recently been enrolled in a weight loss program and takes phentermine. She is on no other new medications. She has no history of VTE. The patient denied cough, fever or shortness of breath prior to the episode. She denied headache. She denied chest pain. She was otherwise asymptomatic except for feeling weak. She was found to be a bit tachycardic. -: Gradual Treatments Prior to Arrival: none - Related Data Home Medications Medication Instructions Recorded Confirmed Last Taken Montelukast Sodium 1 tab PO DAILY 05/28/20 05/28/20 Unknown Olmesartan Medoxomil [Benicar] 1 tab PO DAILY 05/28/20 05/28/20 Unknown Phentermine HCl 1 tab PO DAILY 05/28/20 05/28/20 Unknown Previous Rx's Medication Instructions Recorded Last Taken Type Desloratadine [Clarinex] 5 mg PO DAILY #7 tablet 04/16/20 Unknown Rx Allergies Allergy/AdvReac Type Severity Reaction Status Date / Time No Known Allergies Allergy Verified 10/28/18 08:20 ED Review of Systems ROS: Stated complaint: LIGHT HEADED Other details as noted in HPI Constitutional: weakness. denies: chills, fever Eyes: denies: eye pain, vision change ENT: denies: ear pain, throat pain Respiratory: denies: cough, shortness of breath, wheezing Cardiovascular: denies: chest pain, palpitations Endocrine: no symptoms reported Gastrointestinal: denies: abdominal pain, nausea, diarrhea Genitourinary: denies: urgency, dysuria, discharge Musculoskeletal: denies: back pain, joint swelling, arthralgia Skin: denies: rash, lesions Neurological: denies: headache, weakness, paresthesias Psychiatric: denies: anxiety, depression Hematological/Lymphatic: denies: easy bleeding, easy bruising ED Past Medical Hx - Past Medical History Previous Medical History?: Yes Hx Hypertension: Yes Hx Congestive Heart Failure: No Hx Diabetes: No Hx Deep Vein Thrombosis: No Hx Renal Disease: No Hx Sickle Cell Disease: No Hx Seizures: No Hx Asthma: No Hx COPD: No Hx HIV: No Additional medical history: right leg injuy, hardwarde place, left leg with same c/o - Surgical History Past Surgical History?: Yes Additional Surgical History: surgery to right hip and foot, X1 2019 - Social History Smoking Status: Never Smoker Substance Use Type: None - Medications Home Medications: Home Medications Medication Instructions Recorded Confirmed Last Taken Type Desloratadine [Clarinex] 5 mg PO DAILY #7 tablet 04/16/20 05/28/20 Unknown Rx Montelukast Sodium 1 tab PO DAILY 05/28/20 05/28/20 Unknown History Olmesartan Medoxomil [Benicar] 1 tab PO DAILY 05/28/20 05/28/20 Unknown History Phentermine HCl 1 tab PO DAILY 05/28/20 05/28/20 Unknown History ED Physical Exam - General Limitations: No Limitations General appearance: alert, in no apparent distress - Head Head exam: Present: atraumatic, normocephalic - Eye Eye exam: Present: normal appearance. Absent: scleral icterus - ENT ENT exam: Present: mucous membranes moist - Neck Neck exam: Present: normal inspection - Respiratory Respiratory exam: Present: normal lung sounds bilaterally. Absent: respiratory distress - Cardiovascular Cardiovascular Exam: Present: normal rhythm, tachycardia. Absent: systolic murmur, diastolic murmur, rubs, gallop - GI/Abdominal GI/Abdominal exam: Present: soft, normal bowel sounds. Absent: distended, tenderness, guarding, rebound, rigid - Extremities Exam Extremities exam: Present: normal inspection, normal capillary refill. Absent: pedal edema, joint swelling, calf tenderness - Back Exam Back exam: Present: normal inspection - Neurological Exam Neurological exam: Present: alert, oriented X3, CN II-XII intact. Absent: motor sensory deficit - Psychiatric Psychiatric exam: Present: normal mood, anxious - Skin Skin exam: Present: warm, dry, intact, normal color. Absent: rash ED Course Vital Signs 05/28/20 05/28/20 05/28/20 08:30 09:10 10:08 Temperature 98.6 F 97.8 F Pulse Rate 109 H 97 H 90 Respiratory 16 18 16 Rate Blood Pressure 159/107 Blood Pressure 126/84 141/75 [Right] O2 Sat by Pulse 98 100 100 Oximetry - Reevaluation(s) Reevaluation #1: Patient was given IV fluid. She was noted to have a normal d-dimer. She was placed on a registered nurse cardiac. Her vital signs spontaneously reverted to normal range. On reexamination she felt much better. She had a mildly elevated CK. I am wondering if this could possibly be secondary to phentermine. In my opinion she is a very poor candidate for this medication being hypertensive etc. I strongly recommend that she discontinue this medicine. Being that she remained asymptomatic in the emergency department and responded well to fluids she was deemed appropriate for outpatient follow-up. She remained completely neurologically intact and fully ambulatory. She did not complain of pain anywhere. 05/28/20 12:44 ED Medical Decision Making - Lab Data Result diagrams: 05/28/20 08:43 05/28/20 08:43 Laboratory Results - last 24 hr 05/28/20 05/28/20 05/28/20 08:43 08:43 08:43 WBC 7.3 RBC 4.28 Hgb 14.5 H Hct 41.4 MCV 97 MCH 34 H MCHC 35 H RDW 13.4 Plt Count 268 Lymph % (Auto) 33.8 [place] % (Auto) 8.0 H Eos % (Auto) 1.0 Baso % (Auto) 0.4 Lymph # 2.5 [place] # 0.6 Eos # 0.1 Baso # 0.0 Seg Neutrophils % 56.8 Seg Neutrophils # 4.1 PT 13.0 INR 0.97 APTT 23.6 L D-Dimer 231.39 Sodium 137 Potassium 4.8 Chloride 99.7 Carbon Dioxide 23 Anion Gap 19 BUN 10 Creatinine 0.8 Estimated GFR > 60 BUN/Creatinine Ratio 13 Glucose 132 H POC Glucose Calcium 9.4 Magnesium 1.90 Total Bilirubin Direct Bilirubin AST ALT Alkaline Phosphatase Total Creatine Kinase 447 H CK-MB (CK-2) < 1.0 CK-MB (CK-2) Rel Index 0.2 Troponin T < 0.010 Total Protein Albumin Albumin/Globulin Ratio TSH Free T4 HCG, Qual Urine Color Urine Turbidity Urine pH Ur Specific [place] Urine Protein Urine Glucose (UA) Urine Ketones Urine Blood Urine Nitrite Urine Bilirubin Urine Urobilinogen Ur Leukocyte Esterase Urine WBC (Auto) Urine RBC (Auto) U Epithel Cells (Auto) Urine Bacteria (Auto) Urine Mucus 05/28/20 05/28/20 05/28/20 08:43 08:43 08:47 WBC RBC Hgb Hct MCV MCH MCHC RDW Plt Count Lymph % (Auto) [place] % (Auto) Eos % (Auto) Baso % (Auto) Lymph # [place] # Eos # Baso # Seg Neutrophils % Seg Neutrophils # PT INR APTT D-Dimer Sodium Potassium Chloride Carbon Dioxide Anion Gap BUN Creatinine Estimated GFR BUN/Creatinine Ratio Glucose POC Glucose 113 H Calcium Magnesium Total Bilirubin 0.40 Direct Bilirubin < 0.2 AST 30 ALT 27 Alkaline Phosphatase 72 Total Creatine Kinase CK-MB (CK-2) CK-MB (CK-2) Rel Index Troponin T Total Protein 7.7 Albumin 4.2 Albumin/Globulin Ratio 1.2 TSH Free T4 HCG, Qual Negative Urine Color Urine Turbidity Urine pH Ur Specific [place] Urine Protein Urine Glucose (UA) Urine Ketones Urine Blood Urine Nitrite Urine Bilirubin Urine Urobilinogen Ur Leukocyte Esterase Urine WBC (Auto) Urine RBC (Auto) U Epithel Cells (Auto) Urine Bacteria (Auto) Urine Mucus 05/28/20 05/28/20 08:49 10:05 WBC RBC Hgb Hct MCV MCH MCHC RDW Plt Count Lymph % (Auto) [place] % (Auto) Eos % (Auto) Baso % (Auto) Lymph # [place] # Eos # Baso # Seg Neutrophils % Seg Neutrophils # PT INR APTT D-Dimer Sodium Potassium Chloride Carbon Dioxide Anion Gap BUN Creatinine Estimated GFR BUN/Creatinine Ratio Glucose POC Glucose Calcium Magnesium Total Bilirubin Direct Bilirubin AST ALT Alkaline Phosphatase Total Creatine Kinase CK-MB (CK-2) CK-MB (CK-2) Rel Index Troponin T Total Protein Albumin Albumin/Globulin Ratio TSH 2.450 Free T4 1.20 HCG, Qual Urine Color Yellow Urine Turbidity Cloudy Urine pH 6.0 Ur Specific [place] 1.011 Urine Protein <15 mg/dl Urine Glucose (UA) Neg Urine Ketones Neg Urine Blood Lg Urine Nitrite Neg Urine Bilirubin Neg Urine Urobilinogen < 2.0 Ur Leukocyte Esterase Sm Urine WBC (Auto) 6.0 Urine RBC (Auto) 8.0 U Epithel Cells (Auto) 24.0 H Urine Bacteria (Auto) 1+ Urine Mucus Few Laboratory Results - last 24 hr 05/28/20 05/28/20 05/28/20 08:43 08:43 08:43 WBC 7.3 RBC 4.28 Hgb 14.5 H Hct 41.4 MCV 97 MCH 34 H MCHC 35 H RDW 13.4 Plt Count 268 Lymph % (Auto) 33.8 [place] % (Auto) 8.0 H Eos % (Auto) 1.0 Baso % (Auto) 0.4 Lymph # 2.5 [place] # 0.6 Eos # 0.1 Baso # 0.0 Seg Neutrophils % 56.8 Seg Neutrophils # 4.1 PT 13.0 INR 0.97 APTT 23.6 L D-Dimer 231.39 Sodium 137 Potassium 4.8 Chloride 99.7 Carbon Dioxide 23 Anion Gap 19 BUN 10 Creatinine 0.8 Estimated GFR > 60 BUN/Creatinine Ratio 13 Glucose 132 H POC Glucose Lactic Acid Calcium 9.4 Magnesium 1.90 Total Bilirubin Direct Bilirubin AST ALT Alkaline Phosphatase Total Creatine Kinase 447 H CK-MB (CK-2) < 1.0 CK-MB (CK-2) Rel Index 0.2 Troponin T < 0.010 Total Protein Albumin Albumin/Globulin Ratio TSH Free T4 HCG, Qual Urine Color Urine Turbidity Urine pH Ur Specific [place] Urine Protein Urine Glucose (UA) Urine Ketones Urine Blood Urine Nitrite Urine Bilirubin Urine Urobilinogen Ur Leukocyte Esterase Urine WBC (Auto) Urine RBC (Auto) U Epithel Cells (Auto) Urine Bacteria (Auto) Urine Mucus 05/28/20 05/28/20 05/28/20 08:43 08:43 08:43 WBC RBC Hgb Hct MCV MCH MCHC RDW Plt Count Lymph % (Auto) [place] % (Auto) Eos % (Auto) Baso % (Auto) Lymph # [place] # Eos # Baso # Seg Neutrophils % Seg Neutrophils # PT INR APTT D-Dimer Sodium Potassium Chloride Carbon Dioxide Anion Gap BUN Creatinine Estimated GFR BUN/Creatinine Ratio Glucose POC Glucose Lactic Acid 1.30 Calcium Magnesium Total Bilirubin 0.40 Direct Bilirubin < 0.2 AST 30 ALT 27 Alkaline Phosphatase 72 Total Creatine Kinase CK-MB (CK-2) CK-MB (CK-2) Rel Index Troponin T Total Protein 7.7 Albumin 4.2 Albumin/Globulin Ratio 1.2 TSH Free T4 HCG, Qual Negative Urine Color Urine Turbidity Urine pH Ur Specific [place] Urine Protein Urine Glucose (UA) Urine Ketones Urine Blood Urine Nitrite Urine Bilirubin Urine Urobilinogen Ur Leukocyte Esterase Urine WBC (Auto) Urine RBC (Auto) U Epithel Cells (Auto) Urine Bacteria (Auto) Urine Mucus 05/28/20 05/28/20 05/28/20 08:47 08:49 10:05 WBC RBC Hgb Hct MCV MCH MCHC RDW Plt Count Lymph % (Auto) [place] % (Auto) Eos % (Auto) Baso % (Auto) Lymph # [place] # Eos # Baso # Seg Neutrophils % Seg Neutrophils # PT INR APTT D-Dimer Sodium Potassium Chloride Carbon Dioxide Anion Gap BUN Creatinine Estimated GFR BUN/Creatinine Ratio Glucose POC Glucose 113 H Lactic Acid Calcium Magnesium Total Bilirubin Direct Bilirubin AST ALT Alkaline Phosphatase Total Creatine Kinase CK-MB (CK-2) CK-MB (CK-2) Rel Index Troponin T Total Protein Albumin Albumin/Globulin Ratio TSH 2.450 Free T4 1.20 HCG, Qual Urine Color Yellow Urine Turbidity Cloudy Urine pH 6.0 Ur Specific [place] 1.011 Urine Protein <15 mg/dl Urine Glucose (UA) Neg Urine Ketones Neg Urine Blood Lg Urine Nitrite Neg Urine Bilirubin Neg Urine Urobilinogen < 2.0 Ur Leukocyte Esterase Sm Urine WBC (Auto) 6.0 Urine RBC (Auto) 8.0 U Epithel Cells (Auto) 24.0 H Urine Bacteria (Auto) 1+ Urine Mucus Few - EKG Data -: EKG Interpreted by Hi EKG shows normal: sinus rhythm, axis, intervals, QRS complexes, ST-T waves Rate: tachycardia - EKG Data Interpretation: no acute changes - Radiology Data Radiology results: report reviewed, image reviewed (NAP) Critical care attestation.: If time is entered above; I have spent that time in minutes in the direct care of this critically ill patient, excluding procedure time. ED Disposition Clinical Impression: Weakness with dizziness, Elevated CK, Essential hypertension Adverse effects of medication Qualifiers: Encounter type: initial encounter Qualified Code(s): T50.905A - Adverse effect of unspecified drugs, medicaments and biological substances, initial encounter Disposition: - TO HOME OR SELFCARE Is pt being admited?: No Does the pt Need Aspirin: No Condition: Stable Instructions: Weakness (ED), Hypertension (ED) Additional Instructions: I would strongly recommend that you do not take phentermine. You had a mildly elevated CK test. Perhaps this should be repeated. Stay well-hydrated. Return to the emergency department should you have any further symptoms. Follow-up with your primary care physician. Referrals: DENNIS HYDE MD [Primary Care Provider] - 3-5 Days Time of Disposition: 12:46
[2020-05-28 13:07] VITALS: BP 134/78
== END 2020-05-28 12:55 | disposition home or self-care (01) ==
LOC: ED 08:27
DX: T50.905A Adverse effect of unspecified drugs, medicaments and biological substances, initial encounter (principal); R42 Dizziness and giddiness; I10 Essential (primary) hypertension; R94.4 Abnormal results of kidney function studies; Z79.899 Other long term (current) drug therapy; X58.XXXA Exposure to other specified factors, initial encounter
CPT/HCPCS: 36415; 71045; 80048; 80076; 81001; 82140; 82550; 82553; 82962; 83735; 84439; 84443; 84484; 84703; 85025; 85379; 85610; 85730; 93005; 96360; 99284; J7030

== ENCOUNTER 2020-08-29 11:31 | Outpatient (CLI) | payer BC ==
[2020-08-29 12:11] LABS: Bilirubin,Urine NEG (Negative); Blood,Urine NEG (Negative); Color,Urine Yellow (Yellow); Mucus,Urine FEW /HPF; Protein,Urine <15 mg/dL mg/dL (Negative); Urobilinogen,Urine < 2.0 mg/dL (<2.0)
--- NOTE | 2020-08-29 13:53 | Ultrasound Report ---
ULTRASOUND PELVIC COMPLETE ULTRASOUND TRANSVAGINAL HISTORY: IUP placement TECHNIQUE: Transabdominal and transvaginal ultrasound with color Doppler imaging. COMPARISON: 03/09/2020. FINDINGS: The uterus is anteverted and measures 8.3 x 5.0 x 7.2 cm. No uterine mass. The endometrium measures 10 mm in thickness. An intrauterine device is identified in good position. The right ovary measures 4.4 x 2.3 x 3.5 cm. 1.8 cm right ovarian cyst is identified. The left ovary measures 3.4 x 2.8 x 4.2 cm. A 2.0 cm left ovarian cyst is identified. No pelvic fluid collection. IMPRESSION: Intrauterine device appears in good position. Bilateral ovarian cysts as described. Signer Name: Jose A Xavier Jr, MD Signed: 08/29/2020 1:48 PM Workstation Name: [id number]
--- NOTE | 2020-08-29 14:49 | Ultrasound Report ---
ULTRASOUND PELVIC COMPLETE ULTRASOUND TRANSVAGINAL HISTORY: IUP placement TECHNIQUE: Transabdominal and transvaginal ultrasound with color Doppler imaging. COMPARISON: 03/09/2020. FINDINGS: The uterus is anteverted and measures 8.3 x 5.0 x 7.2 cm. No uterine mass. The endometrium measures 10 mm in thickness. An intrauterine device is identified in good position. The right ovary measures 4.4 x 2.3 x 3.5 cm. 1.8 cm right ovarian cyst is identified. The left ovary measures 3.4 x 2.8 x 4.2 cm. A 2.0 cm left ovarian cyst is identified. No pelvic fluid collection. IMPRESSION: Intrauterine device appears in good position. Bilateral ovarian cysts as described. Signer Name: Jose A Xavier Jr, MD Signed: 08/29/2020 2:44 PM Workstation Name: [id number]
== END 2020-08-29 11:32 | disposition home or self-care (01) ==
LOC: LAB 11:31
PROVIDERS: ATTEND Obstetrics & Gynecology
DX: N83.201 Unspecified ovarian cyst, right side (principal); N83.202 Unspecified ovarian cyst, left side; Z97.5 Presence of (intrauterine) contraceptive device; Z11.3 Encounter for screening for infections with a predominantly sexual mode of transmission
CPT/HCPCS: 76830; 76856; 81001; 87591

== ENCOUNTER 2020-10-20 11:00 | Outpatient (CLI) | payer BC | END 2020-10-20 11:01 | disposition home or self-care (01) | LOC: SLR 11:00 | PROVIDERS: ATTEND Otolaryngology | DX: G47.30 Sleep apnea, unspecified (principal); E66.9 Obesity, unspecified; R06.83 Snoring; R40.0 Somnolence | CPT/HCPCS: 95810 ==

== ENCOUNTER 2020-10-23 09:53 | Emergency (ER) | payer BC ==
[2020-10-23 10:36] LABS: Bilirubin,Urine NEG (Negative); Blood,Urine NEG (Negative); Color,Urine Yellow (Yellow); Mucus,Urine 2+ /HPF; Protein,Urine <15 mg/dL mg/dL (Negative)
[2020-10-23 10:37] LABS: HCG Qualitative,Urine Negative (Negative)
[2020-10-23 11:23] LABS: Basophils % (Auto) 0.3 % (0.0-1.8); Eosinophils % (Auto) 0.5 % (0.0-4.3); Hematocrit 42.4 % (30.3-42.9); Hemoglobin 14.6 gm/dl (10.1-14.3); Lymphocytes % (Auto) 38.1 % (13.4-35.0); Mean Corpuscular HGB Conc 34 % (30-34); Mean Corpuscular Volume 98 fl (79-97); Monocytes # (Auto) 0.8 K/mm3 (0.0-0.8); Monocytes % (Auto) 10.7 % (0.0-7.3); Platelet Count 271 K/mm3 (140-440); Red Blood Count 4.31 M/mm3 (3.65-5.03); Red Cell Distribution Width 12.8 % (13.2-15.2)
--- NOTE | 2020-10-23 11:28 | Emergency Department Report ---
ED General Adult HPI - General Chief complaint: Dizziness Stated complaint: POSSIBLE UTI Time Seen by Provider: 10/23/20 10:23 Source: patient Mode of arrival: Ambulatory Limitations: No Limitations - History of Present Illness Initial comments: Patient is a 30-year-old female presents emergency room with complaints of lightheadedness that began a week ago. she states it feels like when you get off of a merry go round. She states that she had similar symptoms last month and was diagnosed with a UTI and completed a course of Macrobid. She states that she is concerned that she may have a UTI again. She states that she has urinary frequency. She denies any dysuria, vaginal discharge, vaginal irritation. She denies any headache, vision changes, numbness, weakness, chest pain, shortness of breath, abd pain, nausea, vomiting, diarrhea, leg swelling. PMHx none. no allergies to meds. [facility] 09/20/2020. - Related Data Home Medications Medication Instructions Recorded Confirmed Last Taken Montelukast Sodium 1 tab PO DAILY 05/28/20 05/28/20 Unknown Olmesartan Medoxomil [Benicar] 1 tab PO DAILY 05/28/20 05/28/20 Unknown Phentermine HCl 1 tab PO DAILY 05/28/20 05/28/20 Unknown Previous Rx's Medication Instructions Recorded Last Taken Type Desloratadine [Clarinex] 5 mg PO DAILY #7 tablet 04/16/20 Unknown Rx Nitrofurantoin [place]/M-Cryst 100 mg PO Q12HR #14 capsule 07/01/20 Unknown Rx [Macrobid CAP] Meclizine HCl 25 mg PO Q8HR PRN #20 tablet 10/23/20 Unknown Rx Allergies Allergy/AdvReac Type Severity Reaction Status Date / Time No Known Allergies Allergy Verified 10/28/18 08:20 ED Review of Systems ROS: Stated complaint: POSSIBLE UTI Other details as noted in HPI Comment: All other systems reviewed and negative ED Past Medical Hx - Past Medical History Previous Medical History?: Yes Hx Hypertension: Yes Hx Congestive Heart Failure: No Hx Diabetes: No Hx Deep Vein Thrombosis: No Hx Renal Disease: No Hx Sickle Cell Disease: No Hx Seizures: No Hx Asthma: No Hx COPD: No Hx HIV: No Additional medical history: right leg injuy, [facility], left leg with same c/o - Surgical History Past Surgical History?: Yes Additional Surgical History: surgery to right hip and foot, X1 2019 - Social History Smoking Status: Never Smoker Substance Use Type: Alcohol, Prescribed - Medications Home Medications: Home Medications Medication Instructions Recorded Confirmed Last Taken Type Desloratadine [Clarinex] 5 mg PO DAILY #7 tablet 04/16/20 05/28/20 Unknown Rx Montelukast Sodium 1 tab PO DAILY 05/28/20 05/28/20 Unknown History Olmesartan Medoxomil [Benicar] 1 tab PO DAILY 05/28/20 05/28/20 Unknown History Phentermine HCl 1 tab PO DAILY 05/28/20 05/28/20 Unknown History Nitrofurantoin [place]/M-Cryst 100 mg PO Q12HR #14 capsule 07/01/20 Unknown Rx [Macrobid CAP] Meclizine HCl 25 mg PO Q8HR PRN #20 tablet 10/23/20 Unknown Rx ED Physical Exam - General Limitations: No Limitations General appearance: alert, in no apparent distress - Head Head exam: Present: atraumatic, normocephalic - Eye Eye exam: Present: normal appearance, PERRL, EOMI Pupils: Present: normal accommodation - ENT ENT exam: Present: mucous membranes moist - Respiratory Respiratory exam: Present: normal lung sounds bilaterally. Absent: respiratory distress, wheezes, rales, rhonchi, stridor, chest wall tenderness, accessory muscle use, decreased breath sounds, prolonged expiratory - Cardiovascular Cardiovascular Exam: Present: regular rate, normal rhythm, normal heart sounds. Absent: systolic murmur, diastolic murmur, rubs, gallop - Neurological Exam Neurological exam: Present: alert, oriented X3, CN II-XII intact, normal gait. Absent: motor sensory deficit - Psychiatric Psychiatric exam: Present: normal affect, normal mood - Skin Skin exam: Present: warm, dry, intact ED Course Vital Signs 10/23/20 10/23/20 10/23/20 10:01 10:02 12:16 Temperature 98.0 F 98 F Pulse Rate 72 83 60 Respiratory 18 20 14 Rate Blood Pressure 147/92 147/92 159/82 O2 Sat by Pulse 99 99 99 Oximetry 10/23/20 12:20 Temperature Pulse Rate Respiratory 14 Rate Blood Pressure 148/95 O2 Sat by Pulse Oximetry ED Medical Decision Making - Lab Data Result diagrams: 10/23/20 10:54 10/23/20 10:54 Lab Results 10/23/20 10/23/20 10/23/20 Range/Units 10:54 10:54 10:54 WBC 7.9 (4.5-11.0) K/mm3 RBC 4.31 (3.65-5.03) M/mm3 Hgb 14.6 H (10.1-14.3) gm/dl Hct 42.4 (30.3-42.9) % MCV 98 H (79-97) fl MCH 34 H (28-32) pg MCHC 34 (30-34) % RDW 12.8 L (13.2-15.2) % Plt Count 271 (140-440) K/mm3 Lymph % (Auto) 38.1 H (13.4-35.0) % [place] % (Auto) 10.7 H (0.0-7.3) % Eos % (Auto) 0.5 (0.0-4.3) % Baso % (Auto) 0.3 (0.0-1.8) % Lymph # (Auto) 3.0 (1.2-5.4) K/mm3 [place] # (Auto) 0.8 (0.0-0.8) K/mm3 Eos # (Auto) 0.0 (0.0-0.4) K/mm3 Baso # (Auto) 0.0 (0.0-0.1) K/mm3 Seg Neutrophils % 50.4 (40.0-70.0) % Seg Neutrophils # 4.0 (1.8-7.7) K/mm3 Sodium 140 (137-145) mmol/L Potassium 3.9 (3.6-5.0) mmol/L Chloride 102.0 (98-107) mmol/L Carbon Dioxide 29 (22-30) mmol/L Anion Gap 13 mmol/L BUN 13 (7-17) mg/dL Creatinine 0.8 (0.6-1.2) mg/dL Estimated GFR > 60 ml/min BUN/Creatinine Ratio 16 % Glucose 104 H (65-100) mg/dL Calcium 9.0 (8.4-10.2) mg/dL Magnesium 1.80 (1.7-2.3) mg/dL Total Bilirubin 0.50 (0.1-1.2) mg/dL AST 21 (5-40) units/L ALT 29 (7-56) units/L Alkaline Phosphatase 74 (35-129) units/L Total Creatine Kinase 165 H (30-135) units/L Total Protein 7.6 (6.3-8.2) g/dL Albumin 4.3 (3.9-5) g/dL Albumin/Globulin Ratio 1.3 % TSH 1.190 (0.270-4.200) mlU/mL Urine Color (Yellow) Urine Turbidity (Clear) Urine pH (5.0-7.0) Ur Specific [place] (1.003-1.030) Urine Protein (Negative) mg/dL Urine Glucose (UA) (Negative) mg/dL Urine Ketones (Negative) mg/dL Urine Blood (Negative) Urine Nitrite (Negative) Urine Bilirubin (Negative) Urine Urobilinogen (<2.0) mg/dL Ur Leukocyte Esterase (Negative) Urine WBC (Auto) (0.0-6.0) /HPF Urine RBC (Auto) (0.0-6.0) /HPF U Epithel Cells (Auto) (0-13.0) /HPF Urine Mucus /HPF Urine HCG, Qual (Negative) 10/23/20 Range/Units Unknown WBC (4.5-11.0) K/mm3 RBC (3.65-5.03) M/mm3 Hgb (10.1-14.3) gm/dl Hct (30.3-42.9) % MCV (79-97) fl MCH (28-32) pg MCHC (30-34) % RDW (13.2-15.2) % Plt Count (140-440) K/mm3 Lymph % (Auto) (13.4-35.0) % [place] % (Auto) (0.0-7.3) % Eos % (Auto) (0.0-4.3) % Baso % (Auto) (0.0-1.8) % Lymph # (Auto) (1.2-5.4) K/mm3 [place] # (Auto) (0.0-0.8) K/mm3 Eos # (Auto) (0.0-0.4) K/mm3 Baso # (Auto) (0.0-0.1) K/mm3 Seg Neutrophils % (40.0-70.0) % Seg Neutrophils # (1.8-7.7) K/mm3 Sodium (137-145) mmol/L Potassium (3.6-5.0) mmol/L Chloride (98-107) mmol/L Carbon Dioxide (22-30) mmol/L Anion Gap mmol/L BUN (7-17) mg/dL Creatinine (0.6-1.2) mg/dL Estimated GFR ml/min BUN/Creatinine Ratio % Glucose (65-100) mg/dL Calcium (8.4-10.2) mg/dL Magnesium (1.7-2.3) mg/dL Total Bilirubin (0.1-1.2) mg/dL AST (5-40) units/L ALT (7-56) units/L Alkaline Phosphatase (35-129) units/L Total Creatine Kinase (30-135) units/L Total Protein (6.3-8.2) g/dL Albumin (3.9-5) g/dL Albumin/Globulin Ratio % TSH (0.270-4.200) mlU/mL Urine Color Yellow (Yellow) Urine Turbidity Clear (Clear) Urine pH 6.0 (5.0-7.0) Ur Specific [place] 1.026 (1.003-1.030) Urine Protein <15 mg/dl (Negative) mg/dL Urine Glucose (UA) Neg (Negative) mg/dL Urine Ketones Neg (Negative) mg/dL Urine Blood Neg (Negative) Urine Nitrite Neg (Negative) Urine Bilirubin Neg (Negative) Urine Urobilinogen 2.0 (<2.0) mg/dL Ur Leukocyte Esterase Sm (Negative) Urine WBC (Auto) 3.0 (0.0-6.0) /HPF Urine RBC (Auto) 2.0 (0.0-6.0) /HPF U Epithel Cells (Auto) 6.0 (0-13.0) /HPF Urine Mucus 2+ /HPF Urine HCG, Qual Negative (Negative) - EKG Data EKG shows normal: sinus rhythm, axis, intervals, ST-T waves Rate: normal - EKG Data 10/23/20 12:39 low voltage no STEMI - Medical Decision Making Patient is a 30-year-old female presents emergency room with complaints of lightheadedness that began a week ago. she states it feels like when you get off of a merry go round. She states that she had similar symptoms last month and was diagnosed with a UTI and completed a course of Macrobid. She states that she is concerned that she may have a UTI again. She states that she has urinary frequency. She denies any dysuria, vaginal discharge, vaginal irritation. She denies any headache, vision changes, numbness, weakness, chest pain, shortness of breath, abd pain, nausea, vomiting, diarrhea, leg swelling. PMHx none. no allergies to meds. [facility] 09/20/2020. No focal neurological deficits on exam. Vitals are stable. No signs of orthostatic hypotension. Labs are normal. UA is within normal limits. EKG with low voltage, otherwise normal. No signs of dehydration. Symptoms could be related to vertigo as she states that it feels like she is on a merry go round and she states that is worse with movements of the head. Patient given prescription for meclizine. Advised patient Please increase your water intake. Follow-up with your primary care doctor for reexamination. Return to emergency room for any new or worsening symptoms. - Differential Diagnosis UTI, vertigo, anemia, electrolyte disturbance, LAURI, dehydration, hypotensio Critical care attestation.: If time is entered above; I have spent that time in minutes in the direct care of this critically ill patient, excluding procedure time. ED Disposition Clinical Impression: Lightheadedness, Urinary frequency Disposition: DC-01 TO HOME OR SELFCARE Is pt being admited?: No Does the pt Need Aspirin: No Condition: Stable Instructions: Dizziness, [id number] Additional Instructions: Please increase your water intake. Follow-up with your primary care doctor for reexamination. Return to emergency room for any new or worsening symptoms. Prescriptions: Meclizine HCl 25 mg PO Q8HR PRN #20 tablet PRN Reason: dizziness/lighthead/nausea Referrals: PRIMARY CARE, [Primary Care Provider] - 2-3 Days Time of Disposition: 12:40 Print Language: SOUTH A[place]
[2020-10-23 11:45] LABS: Alanine Aminotransferase 29 units/L (7-56); Albumin 4.3 g/dL (3.9-5); BUN/Creatinine Ratio 16; Blood Urea Nitrogen 13 mg/dL (7-17)
[2020-10-23 11:46] LABS: Hemolysis Index 5
[2020-10-23 13:28] VITALS: BP 130/72
== END 2020-10-23 13:30 | disposition home or self-care (01) ==
LOC: ED 09:53
DX: R35.0 Frequency of micturition (principal); R42 Dizziness and giddiness; I10 Essential (primary) hypertension; Z79.899 Other long term (current) drug therapy; Z98.890 Other specified postprocedural states
CPT/HCPCS: 36415; 80053; 81001; 81025; 82550; 83735; 84443; 85025; 93005

== ENCOUNTER 2021-02-10 08:25 | Outpatient (CLI) | payer BC ==
[2021-02-10 09:00] LABS: Hematocrit 45.4 % (30.3-42.9); Hemoglobin 15.9 gm/dl (10.1-14.3); Mean Corpuscular HGB Conc 35 % (30-34); Mean Corpuscular Volume 97 fl (79-97); Platelet Count 282 K/mm3 (140-440); Red Blood Count 4.68 M/mm3 (3.65-5.03); Red Cell Distribution Width 12.9 % (13.2-15.2)
[2021-02-10 09:24] LABS: Alanine Aminotransferase 33 units/L (7-56); Albumin 4.6 g/dL (3.9-5); BUN/Creatinine Ratio 14; Blood Urea Nitrogen 13 mg/dL (7-17); Chol/HDL Ratio 3.35 %; HDL Cholesterol 60 mg/dL (40-59); Hemolysis Index 6; LDL Cholesterol,Direct 141 mg/dL (50-130)
== END 2021-02-10 08:26 | disposition home or self-care (01) ==
LOC: LAB 08:25
PROVIDERS: ATTEND Internal Medicine
DX: Z00.00 Encounter for general adult medical examination without abnormal findings (principal); R53.83 Other fatigue; E78.2 Mixed hyperlipidemia; E11.65 Type 2 diabetes mellitus with hyperglycemia; E55.9 Vitamin D deficiency, unspecified
CPT/HCPCS: 36415; 80053; 80061; 82306; 83036; 84443; 85027